=== PATIENT | female | born 1995 | race Caucasian/White ===

== ENCOUNTER 2018-11-03 13:01 | Emergency (ER) | payer MEDICAID ==
[2018-11-03] MEDS ORDERED: NORMAL SALINE 1000 ML 1,000 ML IV ONE (15:55)
[2018-11-03] MEDS ORDERED: ONDANSETRON HCL INJ/PF 4 MG/2 ML SDV IV ONE (15:56)
[2018-11-03] MEDS ORDERED: KETOROLAC TROMETHAMINE INJ/PF 30 MG/1 ML SDV IV ONE (15:56)
--- NOTE | 2018-11-03 15:57 | ER Document Report ---
ED Medical Screen (RME) - General Chief Complaint: Abdominal Pain Stated Complaint: LOW ABDOMINAL PAIN,NAUSEA Time Seen by Provider: 11/03/18 15:48 Primary Care Provider: BLANE PERRIN PA-C [Primary Care Provider] - Follow up as needed Notes: Patient is a 23-year-old female that presents to the emergency department for chief complaint of bilateral pelvic pain. Patient states she started her menstrual period, and then her symptoms seem to worsen for the past few days, of lower abdominal pain and the cramping went away, currently rates her pain as a 8 out of 10, seems to be slightly worse in the right compared to the left. ROS: Other than noted above, the 12 point review of systems was reviewed with the patient and were negative, all pertinent findings are included in the HPI. PHYSICAL EXAMINATION: Vital signs reviewed. GENERAL: Patient appears uncomfortable HEAD: Atraumatic, normocephalic. EYES: Pupils equal round extraocular movements intact, conjunctiva are normal. ENT: Nares patent NECK: Normal range of motion CV: Heart regular rate and rhythm LUNGS: No respiratory distress Abdomen: Obese, bilateral lower abdominal/pelvic tenderness to palpation Musculoskeletal: Normal range of motion NEUROLOGICAL: Normal speech PSYCH: Normal mood, normal affect. MDM: Patient seen and examined for rapid initial assessment. Vital signs reviewed. A comprehensive ED assessment and evaluation of the patient, analysis of test results and completion of the medical decision making process will be conducted by additional ED providers. *Note is created using voice recognition software and may contain spelling, syntax or grammatical errors. TRAVEL OUTSIDE OF THE [place] IN LAST 30 DAYS: No - Related Data Allergies/Adverse Reactions: cefprozil [From Cefzil] Allergy (Unknown, Verified 08/02/15 14:36) sulfamethoxazole [From Bactrim] Allergy (Unknown, Verified 08/02/15 14:36) trimethoprim [From Bactrim] Allergy (Unknown, Verified 08/02/15 14:36) Past Medical History - Past Medical History Cardiac Medical History: Denies: Hx Coronary Artery Disease, Hx Heart Attack, Hx Hypertension Pulmonary Medical History: Denies: Hx Asthma, Hx Bronchitis, Hx COPD, Hx Pneumonia Neurological Medical History: Denies: Hx Cerebrovascular Accident, Hx Seizures Renal/ Medical History: Denies: Hx Peritoneal Dialysis Musculoskeltal Medical History: Denies Hx Arthritis Psychiatric Medical History: Reports: Hx Anxiety, Hx Depression Past Surgical History: Reports: Hx Adenoidectomy, Hx Breast Surgery, Hx Chol ecystectomy, Hx Tonsillectomy - Immunizations Hx Diphtheria, Pertussis, Tetanus Vaccination: Yes Physical Exam - Vital signs Vitals: Temp Pulse Resp BP Pulse Ox 99.8 F 99 18 129/82 H 100 11/03/18 13:11 11/03/18 13:11 11/03/18 13:11 11/03/18 13:11 11/03/18 13:11 Course - Vital Signs Vital signs: Temp Pulse Resp BP Pulse Ox 99.8 F 99 18 129/82 H 100 11/03/18 13:11 11/03/18 13:11 11/03/18 13:11 11/03/18 13:11 11/03/18 13:11 Doctor's Discharge - Discharge Referrals: BLANE PERRIN PA-C [Primary Care Provider] - Follow up as needed
[2018-11-03 16:15] LABS: APPEARANCE,URINE CLEAR; BILIRUBIN,URINE NEGATIVE (NEGATIVE); COLOR,URINE YELLOW; GLUCOSE, URINE NEGATIVE (NEGATIVE); KETONES,URINE NEGATIVE (NEGATIVE); LEUKOCYTE ESTERASE,URINE NEGATIVE (NEGATIVE); NITRITE,URINE NEGATIVE (NEGATIVE); PROTEIN,URINE NEGATIVE (NEGATIVE); URINE SPECIFIC GRAVITY 1.009; UROBILINOGEN,URINE NEGATIVE mg/dL (<2.0)
[2018-11-03 17:39] LABS: ABSOLUTE BASOPHILS # (AUTO) 0.1 10^3/uL (0.0-0.2); ABSOLUTE EOSINOPHILS # (AUTO) 0.3 10^3/uL (0.0-0.6); ABSOLUTE LYMPHOCYTES (AUTO) 2.3 10^3/uL (0.5-4.7); ABSOLUTE MONOCYTES (AUTO) 1.1 10^3/uL (0.1-1.4); ABSOLUTE NEUT (AUTO) 9.8 10^3/uL (1.7-8.2); BASOPHILS % (AUTO) 0.7 % (0-2); EOSINOPHILS % (AUTO) 1.9 % (0-6); HEMATOCRIT 39.7 % (36.0-47.0); HEMOGLOBIN 13.4 g/dL (12.0-15.5); MEAN CORPUSCULAR HEMOGLOBIN 28.7 pg (27.0-33.4); MEAN CORPUSCULAR HGB CONC 33.7 g/dL (32.0-36.0); MEAN CORPUSCULAR VOLUME 85 fl (80-97); MONOCYTES % (AUTO) 8.4 % (3-13); PLATELET COUNT 360 10^3/uL (150-450); RED BLOOD COUNT 4.66 10^6/uL (3.72-5.28); RED CELL DISTRIBUTION WIDTH 13.7 % (11.5-14.0); TOTAL CELLS COUNTED % (AUTO) 100 %; WHITE BLOOD COUNT 13.5 10^3/uL (4.0-10.5)
[2018-11-03 17:55] LABS: ALANINE AMINOTRANSFERASE 28 U/L (9-52); ALBUMIN 4.6 g/dL (3.5-5.0); ALKALINE PHOSPHATASE 68 U/L (38-126); ANION GAP 9 (5-19); ASPARTATE AMINO TRANSFERASE 17 U/L (14-36); BILIRUBIN,DIRECT 0.2 mg/dL (0.0-0.4); BILIRUBIN,TOTAL 0.5 mg/dL (0.2-1.3); BLOOD UREA NITROGEN 5 mg/dL (7-20); CALCIUM 9.6 mg/dL (8.4-10.2); CARBON DIOXIDE 27 mmol/L (22-30); CHLORIDE 106 mmol/L (98-107); GLUCOSE 86 mg/dL (75-110); LIPASE 33.8 U/L (23-300); SODIUM 141.7 mmol/L (137-145); TOTAL PROTEIN 7.2 g/dL (6.3-8.2)
--- NOTE | 2018-11-03 18:04 | RADIOLOGY REPORT (SQ) ---
EXAM DESCRIPTION: U/S NON OB PEL TV W/DOPPLER COMPLETED DATE/TIME: 11/03/2018 5:02 pm REASON FOR STUDY: bilateral pelvic pain COMPARISON: None. TECHNIQUE: Dynamic and static grayscale images acquired of the pelvis via transvaginal approach and recorded on PACS. Additional selected color Doppler and spectral images recorded. LIMITATIONS: None. FINDINGS: UTERUS: Contour normal. No mass. ENDOMETRIAL STRIPE: No focal or generalized thickening. No masses. CERVIX: No nabothian cysts. RIGHT OVARY AND DOPPLER: Enlarged. There are definable echogenic areas associated with the right ova ry. These measure 2.5 and 2.8 cm respectively. There is a 2.4 cm cyst. Normal arterial vascular fl ow without evidence for torsion. LEFT OVARY AND DOPPLER: Normal size. No worrisome masses. Normal arterial vascular flow without evide nce for torsion. FREE FLUID: None noted. OTHER: No other significant finding. MEASUREMENTS: UTERUS: 5.8 x 3.2 x 3.6 cm. ENDOMETRIAL STRIPE: 4 mm. RIGHT OVARY: 7.1 x 3.2 x 5.3 cm. LEFT OVARY: 2.2 x 1.4 x 2.1 cm. IMPRESSION: 1. Small right ovarian cyst. 2. There are 2 definable solid masses associated with right ovary. Possible endometriomas. Correla te clinically for endometriosis. TECHNICAL DOCUMENTATION: JOB ID: [id number] [employer]- All Rights Reserved Rev-01/31 Reading location - IP/workstation name: [email or web address]
--- NOTE | 2018-11-03 18:52 | ER Document Report ---
ED General - General Chief Complaint: Abdominal Pain Stated Complaint: LOW ABDOMINAL PAIN,NAUSEA Time Seen by Provider: 11/03/18 15:48 Primary Care Provider: BLANE PERRIN PA-C [Primary Care Provider] - Follow up as needed Notes: Patient is a 23-year-old female who presents to the emergency department with a chief complaint of pain in her lower abdomen and nausea. Her symptoms started yesterday. Her last menstrual cycle started a few days ago and she is currently on it at this time. Although she is nauseous, she is able to eat. No complaints of dysuria. Denies vaginal discharge. She states she has not been sexually active in the past year. She is having normal bowel movements. TRAVEL OUTSIDE OF THE [place] IN LAST 30 DAYS: No - Related Data Allergies/Adverse Reactions: cefprozil [From Cefzil] Allergy (Unknown, Verified 08/02/15 14:36) sulfamethoxazole [From Bactrim] Allergy (Unknown, Verified 08/02/15 14:36) trimethoprim [From Bactrim] Allergy (Unknown, Verified 08/02/15 14:36) Past Medical History - Social History Smoking Status: Current Every Day Smoker Family History: Reviewed & Not Pertinent Patient has suicidal ideation: No Patient has homicidal ideation: No - Past Medical History Cardiac Medical History: Denies: Hx Coronary Artery Disease, Hx Heart Attack, Hx Hypertension Pulmonary Medical History: Denies: Hx Asthma, Hx Bronchitis, Hx COPD, Hx Pneumonia Neurological Medical History: Denies: Hx Cerebrovascular Accident, Hx Seizures Renal/ Medical History: Denies: Hx Peritoneal Dialysis Musculoskeletal Medical History: Denies Hx Arthritis Psychiatric Medical History: Reports: Hx Anxiety, Hx Depression Past Surgical History: Reports: Hx Adenoidectomy, Hx Breast Surgery, Hx Cholecystectomy, Hx Tonsillectomy - Immunizations Hx Diphtheria, Pertussis, Tetanus Vaccination: Yes Review of Systems - Review of Systems Notes: REVIEW OF SYSTEMS: CONSTITUTIONAL : Denies recent illness. Denies recent unintentional weight loss. Denies fever, chills, or sweats. EENT: Denies eye, ear, throat, or mouth pain, discharge, or symptoms. Denies nasal or sinus congestion. CARDIOVASCULAR: Denies chest pain. RESPIRATORY: Denies shortness of breath, cough, congestion, difficulty breathing, or wheezing. GASTROINTESTINAL: See HPI GENITOURINARY: Denies difficulty urinating, burning, blood in urine, urgency or frequency. FEMALE GENITOURINARY: See HPI MUSCULOSKELETAL: Denies neck and back pain. Denies joint pain or swelling. SKIN: Denies rash, itchiness, or lesions HEMATOLOGIC : Denies easy bruising or bleeding. LYMPHATIC: Denies swollen, painful, enlarged glands. NEUROLOGICAL: Denies no numbness or tingling denies weakness. Denies headache. Denies altered mental status. Denies alteration in speech. PSYCHIATRIC: Denies stress, anxiety, alteration in sleep patterns, or depression. All other systems reviewed and negative. Physical Exam - Vital signs Vitals: Temp Pulse Resp BP Pulse Ox 99.8 F 99 18 129/82 H 100 11/03/18 13:11 11/03/18 13:11 11/03/18 13:11 11/03/18 13:11 11/03/18 13:11 - Notes Notes: PHYSICAL EXAMINATION: GENERAL: Appears well, healthy, well-nourished, no acute distress. HEAD: Normocephalic, atraumatic. EYES: PERRL, conjunctiva normal, all extraocular movements intact, sclera nonicteric ENT: Moist mucous membranes. NECK: Supple, no noticeable swelling, redness, rash. Normal range of motion. LUNGS: Equal breath sounds bilaterally and clear to auscultation. No wheezes rales or rhonchi. CARDIOVASCULAR: S1-S2, regular rate, regular rhythm. Radial pulses 2+, normal. ABDOMEN: Normoactive bowel sounds. Soft, tender lower abdomen in the pelvic region. Right greater than left. EXTREMITIES: Normal strength and range of motion, no pitting or edema. No cyanosis. NEUROLOGICAL: Moves all extremities upon command. Strength 5/5 in all extremities. PSYCH: Normal mood, normal affect. SKIN: Warm, dry. No rash, lesions, ulcerations noted. Normal skin turgor. Course - Re-evaluation Re-evalutation: The patient has a 2.5 and 2.8 cm mass noted in her right ovary. She also has a 2.4 cm ovarian cyst. She is not anemic. She does have blood in her urine, consistent with her menstrual cycle. Her chemistries are unremarkable. The rest of her hematology is also unremarkable. The patient states that she has a family history of endometriosis, therefore she is not surprised with the results. 11/03/18 19:01 I have spoke with Dr. Avery in regards to the patient's ultrasound results. Dr. Avery would like the patient to follow-up in the office. I relayed this information on to the patient. Verbal discharge instructions were given to the patient. They verbalized understanding. They are stable for discharge. - Vital Signs Vital signs: Temp Pulse Resp BP Pulse Ox 99.8 F 99 18 129/82 H 100 11/03/18 13:11 11/03/18 13:11 11/03/18 13:11 11/03/18 13:11 11/03/18 13:11 - Laboratory Result Diagrams: 11/03/18 17:15 11/03/18 17:15 Laboratory results interpreted by me: 11/03/18 11/03/18 11/03/18 13:15 17:15 17:15 WBC 13.5 H Absolute Neutrophils 9.8 H BUN 5 L Urine Blood LARGE H Discharge - Discharge Clinical Impression: Pelvic pain Condition: Stable Disposition: HOME, SELF-CARE Additional Instructions: You are seen in the emergency department for pelvic pain and nausea. Please [facility]ow[facility]up with [facility] in regards to this visit. You can take Motrin Tylenol [id number] as needed. You have been given morphine, medication to help with your pain, please only take this for extreme pain. If you have worsening abdominal pain, have increased bleeding, or have symptoms that are worrisome to you, please return to the emergency department. Prescriptions: Morphine Sulfate [Morphine Ir 15 Mg Tablet] 15 mg PO BIDP PRN #6 tablet PRN Reason: Referrals: [facility] [Provider Group] - Follow up in 3-5 days
[2018-11-03] MEDS ORDERED: ONDANSETRON ODT 4 MG TAB (6 TAB/ER DISP) PO PRN (19:09)
[2018-11-03 19:33] VITALS: BP 126/60
== END 2018-11-03 19:39 | disposition home or self-care (01) ==
LOC: ER 13:01
DX: N83.201 Unspecified ovarian cyst, right side (principal); N83.9 Noninflammatory disorder of ovary, fallopian tube and broad ligament, unspecified; R10.2 Pelvic and perineal pain; R11.0 Nausea; F17.200 Nicotine dependence, unspecified, uncomplicated; Z90.49 Acquired absence of other specified parts of digestive tract; Z88.1 Allergy status to other antibiotic agents
CPT/HCPCS: 99284; 96361; 96374; 96375; 36415; 83690; 85025; 81025; 80053; 81001; 76830; 93976; J1885; J2405; J7030

== ENCOUNTER 2019-07-26 01:42 | Emergency (ER) | payer SELFPAY ==
[2019-07-26 01:48] VITALS: BP 139/73
--- NOTE | 2019-07-26 02:27 | ER Document Report ---
HPI - HPI Patient complains to provider of: tailbone pain Time Seen by Provider: 07/26/19 02:10 Pain Level: 4 Context: 24-year-old female presents with tailbone pain that is been ongoing since Saturday (5 days). Patient states she slipped in the shower approximately a week ago. Patient denies any numbness or difficulty with urinating/defecating. Patient states she has some dysuria. - REPRODUCTIVE LMP: 06/26/19 Reproductive: DENIES: : Past Medical History - Social History Smoking Status: Current Every Day Smoker Frequency of alcohol use: None Drug Abuse: None Family History: Reviewed & Not Pertinent Patient has suicidal ideation: No Patient has homicidal ideation: No - Past Medical History Cardiac Medical History: Denies: Hx Coronary Artery Disease, Hx Heart Attack, Hx Hypertension Pulmonary Medical History: Denies: Hx Asthma, Hx Bronchitis, Hx COPD, Hx Pneumonia Neurological Medical History: Denies: Hx Cerebrovascular Accident, Hx Seizures Renal/ Medical History: Denies: Hx Peritoneal Dialysis Musculoskeletal Medical History: Denies Hx Arthritis Psychiatric Medical History: Reports: Hx Anxiety, Hx Depression Past Surgical History: Reports: Hx Adenoidectomy, Hx Breast Surgery, Hx Cholecystectomy, Hx Tonsillectomy - Immunizations Hx Diphtheria, Pertussis, Tetanus Vaccination: Yes Vertical Provider Document - CONSTITUTIONAL Notes: GENERAL: Well-appearing, well-nourished and in no acute distress. HEAD: Atraumatic, normocephalic. EYES: Extraocular movements intact, sclera anicteric, conjunctiva are normal. NECK: Normal range of motion, supple without lymphadenopathy or JVD. LUNGS: Breath sounds clear to auscultation bilaterally and equal. No wheezes rales or rhonchi. HEART: Regular rate and rhythm without murmurs, rubs or gallops. ABDOMEN: Soft, nontender, normoactive bowel sounds. No guarding, no rebound. No masses appreciated. EXTREMITIES: Normal range of motion, no pitting or edema. No clubbing or cyanosis. Tenderness over sacrum. No spinal tenderness to cervical, thoracic, lumbar spine. NEUROLOGICAL: Cranial nerves II through XII grossly intact. Normal speech, normal gait. PSYCH: Normal mood, normal affect. SKIN: Warm, Dry, normal turgor, no rashes or lesions noted. - INFECTION CONTROL TRAVEL OUTSIDE OF THE [place] IN LAST 30 DAYS: No Course - Re-evaluation Re-evalutation: 07/26/19 84-year-old female presents for tailbone pain started after a slip and fall in the shower. Patient denies any difficulty with urinating or defecating or any groin numbness. Patient states she has some dysuria. X-ray of sacrum/coccyx ordered and UA. Patient nontoxic, well-appearing. PE is otherwise unremarkable. X-ray of sacrum/coccyx negative for fractures. UA shows blood without infection. 07/26/19 04:04 Reevaluated pt. Pt resting comfortably. Discussed results of x- ray and UA with pt. Return precautions discussed/given. Prescription for ibuprofen given. All questions/concerns addressed prior to discharge. - Vital Signs Vital signs: Temp Pulse Resp BP Pulse Ox 98.5 F 98 16 139/73 H 100 07/26/19 01:47 07/26/19 01:47 07/26/19 01:47 07/26/19 01:47 07/26/19 01:47 Discharge - Discharge Clinical Impression: Coccydynia Condition: Stable Disposition: HOME, SELF-CARE Instructions: Ice Packs ([facility]), Low Back Pain ([facility]), Warm Packs ([facility]) Additional Instructions: Your x-ray was normal. Your urine showed some blood but otherwise did not show an infection. Please take medication as prescribed. Return to ER for any worsening symptoms, including fever, worsening pain, dif ficulty with urinating/defecating, numbness, or any other symptoms that are concerning to you. Prescriptions: Ibuprofen [Motrin 800 mg Tablet] 800 mg PO Q8H PRN #30 tab PRN Reason: Forms: Return to Work Referrals: YASMINE VERA MD [ACTIVE STAFF] - Follow up as needed
[2019-07-26] MEDS ORDERED: ACETAMINOPHEN 325 MG TABLET PO ONE (02:28)
[2019-07-26 02:52] LABS: APPEARANCE,URINE CLEAR; BILIRUBIN,URINE NEGATIVE (NEGATIVE); COLOR,URINE STRAW; GLUCOSE, URINE NEGATIVE (NEGATIVE); KETONES,URINE NEGATIVE (NEGATIVE); LEUKOCYTE ESTERASE,URINE NEGATIVE (NEGATIVE); NITRITE,URINE NEGATIVE (NEGATIVE); PROTEIN,URINE NEGATIVE (NEGATIVE); URINE SPECIFIC GRAVITY 1.006; UROBILINOGEN,URINE NEGATIVE mg/dL (<2.0)
--- NOTE | 2019-07-26 03:37 | RADIOLOGY REPORT (SQ) ---
Sacrum and coccyx three view on 07/26/2019 at 2:46 AM CLINICAL INDICATION: Pain after recent fall one week ago COMPARISON: CT from 04/12/2016 FINDINGS: The SI joints are well aligned. There are no fractures. No bony abnormality is noted. IMPRESSION: No acute abnormality.
== END 2019-07-26 04:19 | disposition home or self-care (01) ==
LOC: ER 01:42
DX: M53.3 Sacrococcygeal disorders, not elsewhere classified (principal); W18.2XXA Fall in (into) shower or empty bathtub, initial encounter; R30.0 Dysuria; R31.9 Hematuria, unspecified; F17.200 Nicotine dependence, unspecified, uncomplicated
CPT/HCPCS: 72220; 81001; 81025; 99283

== ENCOUNTER 2019-07-27 13:55 | Emergency (ER) | payer SELFPAY ==
[2019-07-27 14:02] VITALS: BP 150/83
[2019-07-27] MEDS ORDERED: LIDOCAINE 1% INJ-PF (10 MG/ML) 30 ML SDV INJ ONE (15:36)
--- NOTE | 2019-07-27 15:40 | ER Document Report ---
HPI - HPI Time Seen by Provider: 07/27/19 15:19 Pain Level: 4 Context: She is a 24-year-old female who presents to the emergency department with a chief complaint of possible abscess. Patient reports that she was seen here on Saturday and diagnosed with a contusion to the coccyx. Patient reports she did fall about 1 week ago and injured her tailbone. Patient states she had an x-ray performed which was negative. Patient reports this morning she woke up and noticed a large amount of pus on her underwear. She noticed to her upper buttocks she did have a possible abscess. Patient denies a history of MRSA, staph or abscess to this area. Patient denies a history of diabetes. Patient denies fever. - CONSTITUTIONAL Constitutional: DENIES: Fever, Chills - REPRODUCTIVE Reproductive: DENIES: : Past Medical History - General Information source: Patient - Social History Smoking Status: Current Every Day Smoker Frequency of alcohol use: None Drug Abuse: None Lives with: Family Family History: Reviewed & Not Pertinent Patient has suicidal ideation: No Patient has homicidal ideation: No - Past Medical History Cardiac Medical History: Reports: None Denies: Hx Coronary Artery Disease, Hx Heart Attack, Hx Hypertension Pulmonary Medical History: Reports: None Denies: Hx Asthma, Hx Bronchitis, Hx COPD, Hx Pneumonia EENT Medical History: Reports: None Neurological Medical History: Reports: None. Denies: Hx Cerebrovascular Accident, Hx Seizures Endocrine Medical History: Reports: None Renal/ Medical History: Reports: None. Denies: Hx Peritoneal Dialysis Malignancy Medical History: Reports: None GI Medical History: Reports: None Musculoskeletal Medical History: Reports None, Denies Hx Arthritis Skin Medical History: Reports None Psychiatric Medical History: Reports: Hx Anxiety, Hx Depression Traumatic Medical History: Reports: None Infectious Medical History: Reports: None Past Surgical History: Reports: Hx Adenoidectomy, Hx Breast Surgery, Hx Cholecystectomy, Hx Tonsillectomy - and adenoids - Immunizations Hx Diphtheria, Pertussis, Tetanus Vaccination: Yes Vertical Provider Document - CONSTITUTIONAL Agree With Documented VS: Yes Exam Limitations: No Limitations General Appearance: No Apparent Distress - INFECTION CONTROL TRAVEL OUTSIDE OF THE [place] IN LAST 30 DAYS: No - HEENT HEENT: Atraumatic, Normocephalic, PERRLA - NECK Neck: Normal Inspection - RESPIRATORY Respiratory: Breath Sounds Normal, No Respiratory Distress - CARDIOVASCULAR Cardiovascular: Regular Rate, Regular Rhythm - GI/ABDOMEN Gastrointestinal: Abdomen Soft, Abdomen Non-Tender, Normal Bowel Sounds - MUSCULOSKELETAL/EXTREMETIES Musculoskeletal/Extremeties: FROM - NEURO Level of Consciousness: Awake, Alert, Appropriate - DERM Integumentary: Warm, Dry, Abscess Notes: 1x2cm abscess that is oozing a purulent drainage to mid-upper buttocks, no surrounding cellulitis. Course - Vital Signs Vital signs: Temp Pulse Resp BP Pulse Ox 98.1 F 83 18 150/83 H 98 07/27/19 14:01 07/27/19 14:01 07/27/19 14:01 07/27/19 14:01 07/27/19 14:01 Procedures - Incision and Drainage Upper Buttock Time completed: 16:15 Type: Simple Anesthetic type: 1% Lidocaine mL's of anesthetic: 4 Blade size: 11 I&D procedure: Betadine prep applied Incision Method: Incision made by scalpel - 1 cm incision made Notes: 07/27/19 16:29 Small amount of blood and purulent discharge drained from the abscess site. I did irrigate the wound and explore the abscess which did not reveal any pockets of pus or blood. Adult Front & Back picture: 1 - 1x2cm abscess, drainage prior to I&D Discharge - Discharge Clinical Impression: Pilonidal cyst with abscess Condition: Stable Disposition: HOME, SELF-CARE Instructions: Abscess ([facility]) Additional Instructions: Today you are seen in the emergency department for an abscess. This did require an incision and drainage. The incision will continue to drain over the next few days. Please use warm compresses. Please use Tylenol and ibuprofen as needed for pain. Please return to the emergency department in 2 days for a wound recheck. You will be placed on oral antibiotics. Please take these for its full duration. *Please return to the emergency department if your symptoms worsen over the next 2 days to include fever, chills, worsening pain, increased swelling and redness to the site or any new or worsening symptoms. Abscess You have an abscess (boil). This a pus-forming infection, usually due to staph. Some boils may be left to drain on their own, but most require lancing. From the time the tender lump first appears, it may be three or four days before the abscess is ready to kennedy. Local heat and rest help at this stage of treatment. An antibiotic may prevent spread of the infection. Once the abscess is opened, packing may be placed into it. This is done so pus is not sealed inside by premature closure of the cavity. The packing will be removed at your follow-up visit or you may be advised to remove it yourself at home. Sometimes this packing must be replaced a few times during healing. The wound will heal with surprisingly little scar. Depending on the size and location of an abscess, healing can take one to four weeks. You may shower and wash the area around the incision site two or three times a day. Antibiotics may be prescribed, but are usually not necessary after an abscess has been drained. If you develop fever, chilling, worsening pain, or increasing swelling in the area, call the doctor or return immediately. Prescriptions: Doxycycline Hyclate 100 mg PO BID #14 capsule Forms: Return to Work
[2019-07-27] MEDS ORDERED: DOXYCYCLINE HYCLATE 100 MG TABLET PO ONE (16:26)
== END 2019-07-27 16:37 | disposition home or self-care (01) ==
LOC: ER 13:55
PROC: 0H98XZZ Drainage of Buttock Skin, External Approach (ICD-10-PCS; principal; 2019-07-27)
DX: L05.01 Pilonidal cyst with abscess (principal); F17.200 Nicotine dependence, unspecified, uncomplicated
CPT/HCPCS: 99283

== ENCOUNTER 2019-07-30 08:29 | Emergency (ER) | payer SELFPAY ==
[2019-07-30 08:33] VITALS: BP 123/63
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
== END 2019-07-30 09:48 | disposition home or self-care (01) ==
LOC: ER 08:29
DX: L05.01 Pilonidal cyst with abscess (principal); Z48.817 Encounter for surgical aftercare following surgery on the skin and subcutaneous tissue; L91.0 Hypertrophic scar; F17.200 Nicotine dependence, unspecified, uncomplicated